=== PATIENT | female | born 1980 | race Caucasian/White ===

== ENCOUNTER 2018-02-05 08:00 | Emergency (ER) | payer SELFPAY ==
[2018-02-05 08:38] VITALS: BP 129/91
[2018-02-05] MEDS: 0.9 % SODIUM CHLORIDE 1,000 ML IV ONE (08:45)
--- NOTE | 2018-02-05 08:46 | ED Physician Documentation ---
Female Urogenital Problems - HISTORIAN Historian: patient - HPI Stated Complaint: R abd pain Chief Complaint: Female Urogenital Problems Onset: hours Severity: severe Location of Pain: flank pain Further Comments: yes (37 year old female patient presents with right flank pain radiating to RLQ. Patient reports pain started last night and has become progressively worse. 08/27. No history of renal calculi.) - Vaginal Bleeding Contraceptive: BCP's - ROS CONST: none GI/: nausea. denies: vomiting, diarrhea CVS/RESP: none EYES/ENT: none NEURO/PSYCH: none MS/SKIN/LYMPH: none - PAST HX Past History: ovarian cyst(s) Other History: other (Hep C) Allergies/Adverse Reactions: Allergies Allergy/AdvReac Type Severity Reaction Status Date / Time No Known Allergies Allergy Verified 02/05/18 08:39 Home Medications: Ambulatory Orders Medication Instructions Recorded Desogestrel-Ethinyl Estradiol 2 tab PO DAILY 02/05/18 [Enskyce 28 Tablet] - SOCIAL HX Smoking History: non-smoker - FAMILY HX Family History: denies: none - VITAL SIGNS Vital Signs: Vital Signs Temp Pulse Resp BP Pulse Ox 96.7 F L 91 H 16 129/91 95 02/05/18 08:05 02/05/18 08:05 02/05/18 08:05 02/05/18 08:05 02/05/18 08:05 - REVIEWED ASSESSMENTS Nursing Assessment Reviewed: Yes Vitals Reviewed: Yes Progress - Progress Progress: Pain improved after toradol and fentanyl Discussed smoking and oral BC with patient who states "my specialist says it is ok". Discussed risk of thrombus related to BC and smoking including FL, stroke, PE and DVT. 1000 Call to [facility] for consult with Dr Jara - discussed case; old records reviewed. Patient was seen in July 2017 - US 08/05/20107 revealed 6x4x 6 cm cystic; patient was advised to have D&C due to dysfunctional uterine bleeding; consider hysterectomy; place mirena. Patient was not given refills on control. Patient has not followed up with Dr Jara. Discussed patient still smoking and taking 2 BC tabs daily. Orders to have patient stop BC. Examined patient's BC package. Refills per patient's PCP - Dr Jones; reviewed Dr Jara' recommendations with patient. Patient now states she does not have the $12,000 to have the surgery. Instructed the patient to make follow up appointment with Dr Jara, stop taking BC and discuss financial concerns with Dr Jara. Verbalized understanding. ED Results Lab/Radiology - Radiology Radiology Impressions: Examination: CT Abdomen/pelvis History: Right abdominal discomfort Comparison exams: None available Technique: CT Abdomen/pelvis without IV protocol. Findings: Liver, spleen, adrenals, and pancreas are without gross irregularity given exam technique. Surgical clips gallbladder fossa. 1 mm left inferior calyx calcification. No suspicious right renal calcifications. Ureters are nondilated in their course through the abdomen and pelvis. No central calcifications. Bladder margin within normal limits. Abdominal aorta without aneurysm or peripheral atherosclerotic disease. Cardiac silhouette is not enlarged. No pericardial effusion. Bowel unopacified limiting evaluation. Fluid filled loops of small bowel without abnormal dilation. Stool within the large bowel limiting sensitivity. No mesenteric inflammatory changes or free fluid. Appendix is visualized and is without inflammatory changes. Midabdominal septated cystic structure measuring 7.3 x 7.8 x 7.8 cm. Osseous structures within normal limits. Lung bases without infiltrate. No effusion. Impression: No acute upper abdominal organ inflammatory process. No abnormal bowel dilation or inflammation. Mid abdominal septated cystic structure as described - possibly representing ovarian/adnexal process. Consider ultrasound to further evaluate. 1 mm left nephrolithiasis. No abnormal ureteric dilation. No lung base consolidation or effusion. Electronically signed on Feb 05, 2018 9:41:13 AM CDT by: Milo Mcmanus - Orders Orders: ED Orders Category Date Time Status Place IV Lock 1T Care 02/05/18 08:36 Active RENAL STONE PROTOCOL [CT ABD & PELVIS W/O CON] Stat Exams 02/05/18 Ordered UA W/MICRO IF INDICATED Stat Lab 02/05/18 08:36 Ordered URINE HCG Stat Lab 02/05/18 Ordered 0.9 % Sodium Chloride [Normal Saline] 1,000 ml Med 02/05/18 08:39 Discontinued IV NOW Ketorolac Tromethamine [Toradol] Med 02/05/18 08:39 Discontinued 30 mg IVP NOW ONE fentaNYL CITRATE/PF [Duragesic] Med 02/05/18 08:41 Once 50 mcg IVP NOW ONE Female Urogenital Problems - EXAM General Appearance: moderate distress EENT: eye inspection normal, ENT inspection normal, pharynx normal, no signs of dehydration, ELIANA, no nystagmus, TM's nml Respiratory: no resp. 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
[2018-02-05] MEDS: KETOROLAC TROMETHAMINE 30 MG/1ML VIAL IVP ONE (08:53)
[2018-02-05] MEDS: fentaNYL CITRATE/PF 100 MCG/ 2ML AMP IVP ONE (08:53)
[2018-02-05 10:01] LABS: APPEARANCE,URINE CLEAR (CLEAR); COLOR,URINE AMBER (YELLOW); OCCULT BLOOD,URINE 1+ (NEGATIVE); PH URINE 5.5 (5.0 - 8.0); UROBILINOGEN URINE 0.2 Eu (0.2-1.0)
[2018-02-05 10:30] LABS: BASOPHILS % 0.8 (0.0-1.5); EOSINOPHILS % 4.9 % (0.0-6.8); MEAN CORPUSCULAR HEMOGLOBIN 32.6 pg (28.0-34.0); MONOCYTES % 4.3 % (0.0-11.0); NEUTROPHILS # 4.7 # k/uL (1.4-7.7)
[2018-02-05 10:51] LABS: eGFR (African) > 60; eGFR (Non-African) > 60
--- NOTE | 2018-02-05 17:40 | Diagnostic Imaging Report ---
KYLAH BADILLO (FLUID DESIGNER) - ER~ [facility] [address] [facility] [address] [place], [place]. [address] ~ ~ ~ ~ Report Submission Date: Feb 05, 2018 9:41:13 AM CDT Patient ~ Study Name: DMITRI BURTON ~ Date: Feb 05, 2018 8:55:35 AM CDT ~ Modality Type: CT\SR Gender: F ~ Description: CT A/P W/O CONTRAST : 80 ~ Institution: [facility] Physician: KYLAH BADILLO (FLUID DESIGNER) - ER ~ ~ ~ Examination: CT Abdomen/pelvis History: Right abdominal discomfort Comparison exams: None available Technique: CT Abdomen/pelvis without IV protocol.~ Findings:~ Liver, spleen, adrenals, and pancreas are without gross irregularity given exam technique. Surgical clips gallbladder fossa. 1 mm left inferior calyx calcification. No suspicious right renal calcifications. Ureters are nondilated in their course through the abdomen and pelvis. No central calcifications. Bladder margin within normal limits. Abdominal aorta without aneurysm or peripheral atherosclerotic disease. Cardiac silhouette is not enlarged. No pericardial effusion. Bowel unopacified limiting evaluation. Fluid filled loops of small bowel without abnormal dilation. Stool within the large bowel limiting sensitivity. No mesenteric inflammatory changes or free fluid. Appendix is visualized and is without inflammatory changes.~ Midabdominal septated cystic structure measuring 7.3 x 7.8 x 7.8 cm. Osseous structures within normal limits. Lung bases without infiltrate.~ No effusion. Impression: No acute upper abdominal organ inflammatory process. No abnormal bowel dilation or inflammation.~ Mid abdominal septated cystic structure as described - possibly representing ovarian/adnexal process. Consider ultrasound to further evaluate. 1 mm left nephrolithiasis. No abnormal ureteric dilation. No lung base consolidation or effusion. ~ Electronically signed on Feb 05, 2018 9:41:13 AM CDT by: Milo DE PAZ
== END 2018-02-05 10:57 | disposition home or self-care (01) ==
LOC: ED 08:00
DX: R10.31 Right lower quadrant pain (principal); N83.209 Unspecified ovarian cyst, unspecified side
CPT/HCPCS: 74176; 80053; 81002; 81025; 85025; J1885; J3010; J7030; 96365; 96375; 99283; S1016